=== PATIENT | male | born 1950 | race Caucasian/White ===

== ENCOUNTER → 2020-11-25 | Outpatient (CLI) | payer MEDICARE, OTHER | LOC: NM 14:00 | DX: R10.9 Unspecified abdominal pain (principal) | CPT/HCPCS: 78226; A9537 ==

== ENCOUNTER → 2021-12-05 | Outpatient (CLI) | payer MEDICARE | LOC: KOH-I 09:55 | DX: R51.9 Headache, unspecified (principal); M60.89 Other myositis, multiple sites; Z86.79 Personal history of other diseases of the circulatory system | CPT/HCPCS: 70450 ==